=== PATIENT | female | born 1995 | race Caucasian/White ===

== ENCOUNTER 2020-04-02 19:14 | Emergency (ER) | payer BC, OTHER ==
[~2020-04-02] VITALS: Ht 147.3 cm; Wt 85.3 kg
[2020-04-02 19:22] VITALS: Ht 147.3 cm; Wt 85.3 kg
[2020-04-02 22:06] VITALS: BP 114/59
== END 2020-04-02 22:06 | disposition home or self-care (01) ==
LOC: ED 19:14
DX: M06.9 Rheumatoid arthritis, unspecified (principal)
CPT/HCPCS: J1885